=== PATIENT | female | born 1995 | race Caucasian/White ===

== ENCOUNTER 2016-11-02 05:52 | Inpatient (IN) | payer MEDICAID ==
[2016-11-02] VITALS (11 sets, daily range): BP systolic 104–124; BP diastolic 48–75; Ht 157.5 cm; Wt 70.8 kg
[~2016-11-02] VITALS: Ht 157.5 cm; Wt 70.8 kg
[~2016-11-02 05:52] MED LIST: IBUPROFEN200 MG PO; PERCOCET 5/3251 TA1 PO; PRENATAL COMPLE1 TAB PO; ZOVIRAX400 MG PO; ZOVIRAX800 MG PO
[2016-11-02 06:46] LABS: HEMATOCRIT 34.7 % (36.0-48.0); HEMOGLOBIN 11.4 g/dL (12-16); MCH 29.3 pg (26.0-34.0); MCHC 32.9 g/dL (31.0-37.0); MCV 89.2 fL (80.0-100.0); MEAN PLATELET VOLUME 9.7 fL (7.4-10.4); RBC 3.89 10x6/uL (4.00-5.40); RDW 13.1 % (11.5-14.5); WBC 9.3 10x3/uL (4.8-10.8)
[2016-11-02 07:15] LABS: APPEARANCE HAZY (CLEAR); BILIRUBIN NEGATIVE (NEGATIVE); COLOR YELLOW (YELLOW); GLUCOSE NEGATIVE (NEGATIVE); KETONE NEGATIVE (NEGATIVE); LEUKOCYTE ESTERASE NEGATIVE (NEGATIVE); NITRITE NEGATIVE (NEGATIVE); PROTEIN NEGATIVE (NEGATIVE); SPECIFIC GRAVITY 1.015 (1.005-1.020); UROBILINOGEN NORMAL (NORMAL)
--- NOTE | 2016-11-02 08:57 | NUR ---
PALPATED FUNDUS FIRM AND MIDLINE
--- NOTE | 2016-11-02 09:15 | NUR ---
PT RECEIVED FROM RECOVERY ROOM S/P . SHE IS AWAKE AND ALERT. HER PAIN IS ABOUT A 7. LUNGS- CLEAR. HEART- RRR. ABD SOFT WITH BULKY DRESSING NOTED. ERIKA PAD WITH SMALL AMOUNT OF LOCIA RUBRA NOTED. ICE PACK PLACED ON INCISION. CORCORAN CATH INTACT WITH PHILIPP COLORED URINE. CORCORAN SECURED TO R THIGH. SCD'S INITIATED. IV INTACT R FOREARM AND PATENT. LR WITH PIT INFUSING AT 125 CC/HR. DEMERAOL MEDICAL INTERN INITIATED. BED IS LOW. CALL LIGHT IS IN REACH AND SIDE RAILS UP X 2. PT INSTRUCTED ON TURNING, COUGHING AND DEEP BREATHING, INC JEANA, MEDICAL INTERN, CORCORAN, ICE PACK AND SCD'S.
--- NOTE | 2016-11-02 10:35 | NUR ---
PT REQUESTED TO HAVE A SPRITE. ROLLED A LITTLE TO R SIDE ALSO. PT GIVEN SPRITE. AT BEDSIDE.
--- NOTE | 2016-11-02 11:42 | NUR ---
BABY IS IN ROOM. OFFERS NO COMPLAINTS. IS AT BEDSIDE.
--- NOTE | 2016-11-02 12:14 | NUR ---
PT STATES HER PAIN IS ABOUT A 6 BUT IS BETTER. CHANGED HER PADS OUT. MODERATE LOCIA RUBRA. CLEANED WITH SOAP AND WARM WATER. CORCORAN INTACT. 325 CC PHILIPP COLORED URINE NOTED IN CHAMBER SINCE SHE WAS BROUGHT TO US. STATES PAIN IS A 6/10.
--- NOTE | 2016-11-02 14:44 | NUR ---
ERIKA CARE, CORCORAN CARE COMPLETED. CHUCKS CHANGED AND PAD. MODERATE VAGINAL DISCHARGED NOTED. FUNDUS FIRM AND EVEN WITH UMBLI. FRESH ICE PACK GIVEN. PT DENIES FURTHER NEEDS..SCD ON IRVING LEGS AND WORKING.
--- NOTE | 2016-11-02 17:32 | NUR ---
PT IS HOLDING BABY. . BABY IS LATCHING ON.
--- NOTE | 2016-11-02 18:17 | NUR ---
PT IS RESTING IN BED. PT OFFERS NO COMPLAINTS. IV R FOREARM WITH NS WITH PIT INFUSING. DEMEROL FOUNDRY MELT SUPERVISOR 10 MG Q 10 MIN. CORCORAN INTACT. HAS HAD 750 CC OUTPUT SINCE I RECEIVED HER. LOCIA RUBRA HAS BEEN MODERATE. SCD'S INTACT. BED IS LOW, SIDERAILS UP X 2 AND CALL LIGHT IN REACH.
--- NOTE | 2016-11-02 19:05 | NUR ---
PT RECEIVED LYING IN BED AWAKE AND ALERT WITH FOB AND AT BEDSIDE. VSS. PT RATES PAIN /. IV NOTED TO RIGHT FOREARM INFSUING NS WITH 20 OF PIT @ 125 CC/HR WITH DERMEROL COPER HAND. HEART RRR. LUNG SOUNDS CLEAR BILATERALLY. BOWEL SOUNDS ACTIVE X4 QUADRENTS. ABDOMEN SOFT WITH TENDERNESS. FUNDUS FIRM AND MIDLINE U/2. LOW TRANSVERSE INCISION NOTED TO ADBOMEN WITH BULKY DRESSING. CDI. MODERATE LOCHIA RUBRA NOTED TO ERIKA PAD AT THIS TIME. SCANT LOCHIA RUBRA NOTED TO BLUE PAD. CHANGED ERIKA PAD AND BLUE PAD AT THIS TIME. SCDS NOTED TO BLE. PT DENIES NEEDS AT THIS TIME. BED LOW. PHONE AND CALL LIGHT IN REACH. SRX2.
--- NOTE | 2016-11-02 20:12 | NUR ---
PT AT THIS TIME. REQUESTS SMALL CUP OF ICE. DENIES OTHER NEEDS. BED LOW. PHONE AND CALL LIGHT IN REACH. SRX2.
--- NOTE | 2016-11-02 21:30 | NUR ---
PT RESTING QUIETLY AT THIS TIME. RATES PAIN 8/10. PRESSED EXECUTIVE BUSINESS COACH BUTTON AT THIS TIME. LIGHT LOCHIA RACHAEL NOTED TO ERIKA PAD AT THIS TIME. CHANGED ERIKA PAD. PT REQUESTS JELLO. DENIES OTHER NEEDS. BED LOW. PHONE AND CALL LIGHT IN REACH. SRX2.
--- NOTE | 2016-11-02 22:27 | NUR ---
PT RESTING QUIETLY AT THIS TIME WITH EYES CLOSED. RESPIRATIONS EVEN, NON-LABORED. NO ACUTE DISTRESS NOTED AT THIS TIME. BED LOW. PHONE AND CALL LIGHT IN REACH. SRX2.
[2016-11-03 00:20] VITALS: BP 103/64
--- NOTE | 2016-11-03 00:20 | NUR ---
PT RESTING QUIETLY AT THIS TIME WITH EYES CLOSED. AROUSED EASILY. BP-103/64 P-83 O2-97% ROOM AIR TEMP 98.3. LIGHT LOCHIA RUBRA NOTED TO ERIKA PAD AND BLUE PAD AT THIS TIME. CHANGED BLUE PAD AND ERIKA PAD. EMPTIED 700 CC FROM CORCORAN AT THIS TIME. PT REQUESTS APPLE SAUCE AND SMALL CUP OF ICE WATER AT THIS TIME. DENIES OTHER NEEDS. BED LOW. PHONE AND CALL LIGHT IN REACH. SRX2.
--- NOTE | 2016-11-03 01:45 | NUR ---
PT SITTING UP IN BED WATCHING TV AT THIS TIME. DENIES NEEDS. BED LOW. PHONE AND CALL LIGHT IN REACH. SRX2.
--- NOTE | 2016-11-03 02:18 | NUR ---
REPLACED PT DEMEROL PRINTING TABLE WORKER AT THIS TIME. PT RATES PAIN 9/10. REQUESTING PILLOW. DENIES OTHER NEEDS.
--- NOTE | 2016-11-03 02:31 | NUR ---
ADMINISTERED TORADOL IVP PER ORDERS AT THIS TIME FOR PAIN PT RATES 05/08. MODERATE LOCHIA RUBRA NOTED TO ERIKA PAD. CHANGED ERIKA PAD AT THIS TIME. PT REQUESTS PILLOW TO PROP LEGS UP AT THIS TIME. DENIES OTHER NEEDS. BED LOW. PHONE AND CALL LIGHT IN REACH. SRX2.
--- NOTE | 2016-11-03 02:53 | NUR ---
MEHNAZ PROVIDED TO PT. SCDS ON AND FUNCTIONAL. PT. STATES SHE FEELS "MUCH MORE COMFORTABLE" SINCE TORADOL INJECTION. INFORMED PT. OF POC OF DISCONTINUING IV AND CORCORAN WITHIN NEXT 15 MINUTES. PT. STATES UNDERSTANDING.
--- NOTE | 2016-11-03 03:11 | NUR ---
CORCORAN CATH. DISCONTINUED WITH 600CC IN DRAINAGE BAG. ICE CAP TO ABD DRESSING NOTED. SCDS ON AND FUNCTIONAL. PT. WILL ACTIVATE TECHNICAL MANAGER CHEMICAL PLANT ONE ADDITIONAL TIME AND IV WILL BE CONVERTED TO SALINE LOCK. ANGELINE NEWBERRY TO MOD.
[2016-11-03 03:35] VITALS: BP 114/68
--- NOTE | 2016-11-03 03:35 | NUR ---
IV AND PARER DISCONTINUED. 25CC REMAINING IN PARER. PT. WRITING ON NURSERY PAPERWORK. VITAL SIGNS OBTAINED. CHEERFUL. IV SALINE LOCKED.
--- NOTE | 2016-11-03 05:38 | NUR ---
PT TERMINAL GAUGER LIGHT. STATES SHE IS READY TO GET UP TO USE RESTROOM. MODERATE LOCHIA RUBRA NOTED TO ERIKA PAD AT THIS TIME AND SCANT LOCHIA RUBRA NOTED TO BLUE PAD. ASSISTED PT TO RESTROOM AT THIS TIME. PT VOIDED APPROX 600 CC INTO HAT. CHANGED BLUE PAD AT THIS TIME AND ASSISTED PT INTO MESH PANTIES WITH CLEAN ERIKA PAD. PT REQUESTS ICE WATER AND MORE ICE FOR ICE PACK AT THIS TIME. DENIES OTHER NEEDS. BED LOW. PHONE AND CALL LIGHT IN REACH. SRX2.
--- NOTE | 2016-11-03 06:01 | NUR ---
11/02/161909 - PT VERBALIZED UNDERSTANDING OF HOW TO USE IS AT THIS TIME. PT DEMONSTRATED USE TO ME. PT WAS ABLE TO PULL 1500 AT THIS TIME.
[2016-11-03 07:02] LABS: BASOPHILS 0.1 % (0.0-2.0); EOSINOPHILS 0.4 % (0-7); HEMATOCRIT 30.3 % (36.0-48.0); IMMATURE GRANULOCYTES 0.5 % (0-5); LYMPHOCYTES 12.7 % (15-50); MCH 29.5 pg (26.0-34.0); MCV 89.4 fL (80.0-100.0); MEAN PLATELET VOLUME 9.6 fL (7.4-10.4); MONOCYTES 8.9 % (2-11); NEUTROPHILS 77.4 % (40-80); PLATELET COUNT 184 10x3/uL (130-400); RBC 3.39 10x6/uL (4.00-5.40); RDW 13.1 % (11.5-14.5); WBC 13.2 10x3/uL (4.8-10.8)
[2016-11-03 07:15] VITALS: BP 131/59
--- NOTE | 2016-11-03 07:15 | NUR ---
PT IS RECEIVED LYING IN BED. STATES THAT HER PAIN IS AN 8. BED IS LOW, SIDE RAILS UP AND CALL LIGHT IN REACH. GEN- AWAKE AND ALERT. LUNGS- CLEAR. HEART- RRR. ABD- SOFT WITH TENDERNESS. INCISION COVERED WITH BULKY DRESSING. CLEAN , DRY AND INTACT. LE- SCD'S INTACT. MINIMAL EDEMA NOTED. MOD- LOCIA RUBRA. SALINE LOCK NOTED R FOREARM- PATENT.
[2016-11-03 07:25] LABS: RAPID PLASMA REAGIN Non Reactive (Non Reactive)
--- NOTE | 2016-11-03 07:42 | NUR ---
PT REQUESTED PAIN MED. PAIN IS AN 8/10- ABDOMEN. PAIN IS A CRAMPING. PAIN MED GIVEN.
--- NOTE | 2016-11-03 08:33 | NUR ---
PT IS IN X-RAY. UNABLE TO GIVE DIABETA. I WILL GIVE IT TO HER WHEN SHE GETS BACK.
--- NOTE | 2016-11-03 09:30 | NUR ---
PT UP TO VOID FOR 2ND TIME. SHE VOIDED 500 CC BLOODY URINE. MODERATE LOCIA RUBRA. PANTIES AND PAD CHANGED. PT BACK TO BED.
--- NOTE | 2016-11-03 10:01 | NUR ---
Adela Thompson 11/03/16 LE@ 8:43 S: Patient states things are good, tired. O: Patient sitting lying in bed, lights off, easily waken, in nursery. States is going fine. This is her second baby. does take time and patience in the beginning, especially the first two weeks, when mother and infant are both learn. Feed baby on demand, explain feeding cues. Infant should eat as often as needed when displaying feeding cues and if doesn't wake to feed in 2 , wake . Provided and explain handouts on waking a sleeping baby, positions for , skin to skin, starting a feeding, engorgement, and mom to mom newsletter, what to expect the first week. Explain supply and demand, what takes out your body will make more of. The first couple of days your body will produce colostrum, this will increase by volume daily to meet infant needs. To promote infant to nurse place on chest for skin to skin. Asked if she receives WIC, states yes, made appointment for 12/10/16 at 9:00 am, asked if any questions or needs, declined at this time. Will follow up. A: Patient looks tired, appears confident with . P: Continue to support exclusively Agusto Sheridan, CLC
--- NOTE | 2016-11-03 10:39 | NUR ---
[facility] CALLED AND STATED THAT PT HAD A POSITIVE BLOOD SCREEN. ASKED IF THEY WOULD LET US KNW THE AMOUNT OF RHOGAM TO GIVE HER AND SHE STATED THEY HAVE TO SEND IT TO [facility] AND COULD TAKE 2 DAYS TO RECEIVE RESULTS.
--- NOTE | 2016-11-03 12:36 | OP ---
PATIENT NAME: KAYE MCGEE MEDICAL RECORD: [id number] :93 LOCATION:[facility] D.1223 ADMISSION DATE:11/02/16 SURGEON: KAMRYN DE PAZ MD DATE OF OPERATION: 11/02/2016 PREOPERATIVE DIAGNOSES: 1. Intrauterine at 39 weeks, 0 days. 2. Previous caesarean section times 1. POSTOPERATIVE DIAGNOSES: 1. Intrauterine at 39 weeks, 0 days. 2. Previous caesarean section times 1. 3. Delivered. SURGEON: Kamryn De Paz MD. ANESTHESIA: Chantelle Harrington CRNA with spinal anesthesia. PROCEDURE: Repeat low transverse . FINDINGS: Delivery of viable female infant from vertex presentation via repeat low transverse under spinal anesthesia at 7:59 a.m. with weight of 7 pounds 9 ounces and scores of 9 and 9 at 1 and 5 minutes respectively. A nuchal times 3 was noted and reduced. The cord was clamped and cut. The was bulb suctioned and handed to awaiting pediatric nursing personnel. The placenta was delivered manually intact, 3-vessel cord at 8:00 a.m. Twenty units of Pitocin and 1 liter of normal saline was begun IV. The fundus was noted to be firm. Normal-appearing uterus, ovaries and tubes bilaterally. The patient went to the recovery room in stable condition, the to the nursery. DESCRIPTION OF PROCEDURE: After informed consent was given, the patient was taken to the operating room where spinal anesthesia was placed and found to be adequate. She was placed in a dorsal supine position with a leftward tilt. A Alvarenga catheter was placed with clear urine return noted. She was prepped and draped sterilely. When anesthesia was noted to be adequate, a Pfannenstiel skin incision was made through her previous scar and carried down to the underlying layer of fascia. The fascia was incised in the midline and the fascial incision extended bilaterally with the Cotton scissors. The superior portion of the fascial incision was grasped with 2 Judy clamps and the rectus muscles dissected off sharply and bluntly. Attention was then turned to the inferior portion of the fascial incision, which was again grasped with 2 Judy clamps and the rectus muscles dissected off sharply and bluntly. Rectus muscles were in the midline, the peritoneum identified and grasped with 2 hemostats. It was then entered sharply with the Metzenbaum scissors. This incision was extended superiorly and inferiorly with good visualization of the bladder. The bladder blade was inserted and the vesicouterine peritoneum was grasped with smooth pickups and entered sharply with Metzenbaum scissors. This incision was extended bilaterally and a bladder flap created digitally. The bladder blade was reinserted. The hysterotomy was created with a knife. This was extended bilaterally bluntly and the 's head delivered atraumatically. A nuchal cord times 3 was noted and reduced at time of delivery. The cord was clamped and cut. The was bulb suctioned and handed to awaiting pediatric nursing personnel. The placenta was then delivered, manually expressed and passed off the field as specimen. Cord blood was obtained. The uterus was OPERATIVE REPORT [id number] KAYE MCGEE exteriorized, cleared of all clots and debris. The interior of the uterus was wiped with a moist lap sponge. The hysterotomy was closed with #1 chromic in a running locked fashion. Excellent hemostasis was noted and the uterus was returned to the abdomen. The abdomen was irrigated profusely and noted to be hemostatic. Sheri dust was placed over the hysterotomy to aid additionally in hemostasis. The rectus muscles were reapproximated in the midline with 3 interrupted chromic sutures. The fascia was closed with 1-0 Vicryl in a running fashion, locking the first suture. The subcutaneous tissue was irrigated, any bleeders cauterized with the Bovie and when noted to be sufficiently dry was closed with 3-0 Vicryl in a running fashion and the skin was closed with 3-0 Monocryl in a subcuticular fashion. Dermabond and pressure dressing were applied. Clear urine was noted at completion of the procedure. The patient tolerated the procedure well. Sponge, lap, needle and instrument counts were reported correct times 2 and the patient went to recovery room in stable condition, the to the nursery. ESTIMATED BLOOD LOSS: 800 cc. URINE OUTPUT: 215 cc. SPECIMENS: Placenta and cord blood. COMPLICATIONS: None. TRANSINT:[id number] Voice Confirmation ID: [id number] DOCUMENT ID: [id number] KAMRYN DE PAZ MD at 1236 CC: [id number] DICTATION DATE: 11/02/16 0851 ADULT CROSSING GUARD: 11/02/16 0915 ADM IN [facility] [address] [id number]
--- NOTE | 2016-11-03 13:30 | NUR ---
PT IS SLEEPING. AT BEDSIDE. BED IS LOW. CALL LIGHT IN REACH AND SIDE RAILS UP X 2.
--- NOTE | 2016-11-03 16:26 | NUR ---
PT IS UP TO SHOWER. LINENS CHANGED. PT TOLERATED WELL. DRESSING REMOVED. INCISION PATTED DRY AND PAD APPLIED ON TOP OF INCISION. LOCIA RUBRA IS SLOWING DOWN. BED IS LOW, SIDE RAILS UPX 2 AND CALL LIGHT INREACH.
--- NOTE | 2016-11-03 17:43 | NUR ---
PT IS OUT OF SHOWER. PAD PLACED OVER INCISION. INCISION CLEAN AND DRY. SALINE LOCK R FOREARM INTACT AND PATENT. PT HAS BEEN VOIDING WITHOUT DIFFICULTY. BED IS LOW, SIDE RAILS UP X 2 AND CALL LIGHT IN REACH.
--- NOTE | 2016-11-03 19:35 | NUR ---
PM ROUNDS MADE, PT VISITING WITH FAMILY AND FRIENDS, GETTING READY TO EAT, INFORMED PT THAT I WILL COME BACK SHORTLY TO DO ASSESSMENT, PT VERBALIZES UNDERSTANDING, REQUESTS PAIN MED WHEN I COME BACK, REFUSES IT AT THIS TIME BECAUSE SHE WANTS TO EAT FIRST
--- NOTE | 2016-11-03 20:00 | NUR ---
PT STILL EATING, REQUESTS TO GO AHEAD AND TAKE PAIN MED AT THIS TIME, ADM PERCOCET PO PER MD ORDERS, SEE EMAR, PT REQUESTED AND SERVED [facility], DENIES FURTHER NEEDS AT THIS TIME, FAMILY IN ROOM
--- NOTE | 2016-11-03 21:40 | NUR ---
PT UP AMBULATING HALLWAY AT THIS TIME. REQUESTS TOILET PAPER FOR BATHROOM. DENIES OTHER NEEDS.
[2016-11-03 21:50] VITALS: BP 118/62
--- NOTE | 2016-11-03 21:50 | NUR ---
ASSESSMENT PER FLOW SHEET, VS OBTAINED, SALINE LOCK IN RIGHT FA INTACT WITH NO REDNESS OR EDEMA, BIKINI INC WITH DB INTACT WITH NO REDNESS OR EDEMA, PT REQUESTED AND PROVIDED ICE PACK, PT REPORTS LIGHT BLEEDING WITH NO CLOTS, PT REPORTS FLATUS, NO BM AND VOIDING BY SELF WITH NO DIFFICULTY, PT DENIES FURTHER NEEDS, FOB HANDS BABY TO PT FOR FEEDING
--- NOTE | 2016-11-03 22:35 | NUR ---
PT HOLDING BABY, RATES INC PAIN AND CRAMPING AFTER TAKING THE MOTRIN 01/05, PT DENIES FURTHER NEEDS, BEDDING PROVIDED TO FOB
[2016-11-03 23:50] VITALS: BP 107/65
--- NOTE | 2016-11-03 23:50 | NUR ---
PT SIGN PAINTER APPRENTICE LIGHT, PT READY TO SEND BABY TO [facility] FOR A SHORT TIME, VS OBTAINED, PT DENIES FURTHER NEEDS, FOB AT BEDSIDE
--- NOTE | 2016-11-04 00:04 | NUR ---
PT UP USING RESTROOM AT THIS TIME. DENIES NEEDS.
--- NOTE | 2016-11-04 02:20 | NUR ---
BABY TO ROOM VIA OPEN CRIB CART PER THIS RN, BANDS CHECKED, PT REQUESTS PAIN MED WHEN FINISHED FEEDING BABY, FOB AT BEDSIDE
[2016-11-04 03:14] VITALS: BP 105/61
--- NOTE | 2016-11-04 03:14 | NUR ---
PT SEWER LIGHT. REQUESTS BE TAKEN TO NURSERY AT THIS TIME AND MEDICATION FOR PAIN PT RATES 5/10. ADMINISTERED PERCOCET PO PER ORDERS AT THIS TIME. VSS. PT DENIES NEEDS AT THIS TIME. BED LOW. PHONE AND CALL LIGHT IN REACH. SRX2.
--- NOTE | 2016-11-04 05:03 | NUR ---
INFANT TO ROOM FOR FEEDING AT THIS TIME. PT REQUESTS CUP OF ICE. DENIES OTHER NEEDS. BED LOW. PHONE AND CALL LIGHT IN REACH. SRX2.
--- NOTE | 2016-11-04 06:43 | NUR ---
PT RESTING QUIETLY AT THIS TIME WATCHING TV. FOB AND AT BEDSIDE. PT DENIES NEEDS AT THIS TIME. BED LOW. PHONE AND CALL LIGHT IN REACH. SRX2.
[2016-11-04] MEDS ORDERED: IBUPROFEN600 MG PO (07:23)
[2016-11-04] MEDS ORDERED: PERCOCET 5-3251 TAB PO (07:24)
[2016-11-04 07:30] VITALS: BP 113/67
--- NOTE | 2016-11-04 09:21 | NUR ---
PT IS SLEEPING. BED IS LOW, SIDE RAILS UP X 2 AND CALL LIGHT IN REACH.
--- NOTE | 2016-11-04 10:02 | NUR ---
PT REQUESTED PAIN MED. STATES THAT HER PAIN IS A 7/10. GAVE HER IBUPROFEN AND OXYCODONE 5/325 MG PO.
--- NOTE | 2016-11-04 10:45 | NUR ---
SALINE LOCK REMOVED R FOREARM. TIP INTACT. SHE IS BABY.
== END 2016-11-04 15:30 | disposition home or self-care (01) | DRG 765 ==
LOC: D.LD 05:52 → D.WS 11:49
PROVIDERS: ADMIT Specialist
PROC: 3E0234Z Introduction of Serum, Toxoid and Vaccine into Muscle, Percutaneous Approach (ICD-10-PCS; 2016-11-02)
PROC: 10D00Z1 Extraction of Products of Conception, Low, Open Approach (ICD-10-PCS; principal; 2016-11-02 07:30)
DX: O34.219 Maternal care for unspecified type scar from previous cesarean delivery (principal); O98.82 Other maternal infectious and parasitic diseases complicating childbirth; Z3A.39 39 weeks gestation of pregnancy; Z37.0 Single live birth; O26.893 Other specified pregnancy related conditions, third trimester; Z67.91 Unspecified blood type, Rh negative; O99.824 Streptococcus B carrier state complicating childbirth

== ENCOUNTER 2017-09-18 12:18 | Outpatient (CLI) | payer MEDICAID ==
[2016-11-02 06:06] VITALS: BMI 28.6
[~2017-09-18 12:18] MED LIST changes: +IBUPROFEN600 MG PO; +PERCOCET 5-3251 TAB PO
[2017-09-18 13:14] LABS: APPEARANCE CLOUDY (CLEAR); COLOR YELLOW (YELLOW)
[2017-09-18 13:15] LABS: BILIRUBIN NEGATIVE (NEGATIVE); GLUCOSE NEGATIVE (NEGATIVE); KETONE SMALL mg/dL (NEGATIVE); NITRITE NEGATIVE (NEGATIVE); PROTEIN NEGATIVE (NEGATIVE); SPECIFIC GRAVITY 1.015 (1.005-1.020); UROBILINOGEN NORMAL (NORMAL)
== END 2017-09-18 19:56 | disposition home or self-care (01) ==
LOC: D.LDO 12:18
PROVIDERS: Obstetrics & Gynecology
DX: Z34.83 Encounter for supervision of other normal pregnancy, third trimester (principal); Z3A.33 33 weeks gestation of pregnancy; M54.9 Dorsalgia, unspecified

== ENCOUNTER → 2017-10-18 11:20 | Outpatient (CLI) | payer MEDICAID ==
[2016-11-02 06:06] VITALS: BMI 28.6
[2017-10-18 11:39] LABS: APPEARANCE CLEAR (CLEAR); BILIRUBIN NEGATIVE (NEGATIVE); COLOR YELLOW (YELLOW); GLUCOSE NEGATIVE (NEGATIVE); KETONE NEGATIVE (NEGATIVE); NITRITE NEGATIVE (NEGATIVE); PROTEIN NEGATIVE (NEGATIVE); UROBILINOGEN NORMAL (NORMAL)
[2017-10-18 11:40] LABS: BACTERIA FEW /hpf (NONE SEEN); MUCUS <1+ /lpf (NONE SEEN); RED CELLS - URINE RARE /hpf (0-5); WHITE CELLS - URINE 0-5 /hpf (0-5)
== END | disposition home or self-care (01) ==
LOC: D.LDO 11:20
PROVIDERS: Obstetrics & Gynecology
DX: O26.893 Other specified pregnancy related conditions, third trimester (principal); Z3A.37 37 weeks gestation of pregnancy; R10.9 Unspecified abdominal pain

== ENCOUNTER 2017-11-01 05:32 | Inpatient (IN) | payer MEDICAID ==
[2017-11-01] VITALS (19 sets, daily range): BP systolic 105–132; BP diastolic 58–89; Ht 157.5 cm; Wt 70.8 kg
[~2017-11-01] VITALS: Ht 157.5 cm; Wt 70.8 kg
--- NOTE | ~2017-11-01 | DS ---
PATIENT:KAYE MCGEE :89 MEDICAL RECORD: [id number] DISCHARGE SUMMARY ADMISSION DATE: 11/01/17 DISCHARGE DATE: 11/03/17 DATE OF ADMISSION: 11/01/2017 DATE OF DISCHARGE: 11/03/2017 ADMISSION DIAGNOSES: 1. at term. 2. Unwanted fertility. DISCHARGE DIAGNOSES: 1. Mother delivered term. 2. Unwanted fertility. 3. Possible percreta. PROCEDURES PERFORMED: 1. Repeat low transverse section. 2. tubal ligation. ATTENDING PHYSICIAN: Miriam Luna MD HISTORY OF PRESENT ILLNESS: See the H&P. SUMMARY OF HOSPITALIZATION: The patient received procedure. During the procedure, placenta was encountered immediately adjacent to the rectus bellies and a presumed diagnosis of percreta was given. The patient was delivered and received 2 units of packed red blood cells. At the time of discharge, she is tolerating regular diet, voiding without difficulty and has had adequate pain control. The patient has asked about antidepressants, has a history of depression. The patient denies suicidal or homicidal intent or ideation at this time and will receive Celexa at discharge. Follow up in 1 week. DISCHARGE MEDICATIONS: Will include Percocet and Motrin as well as the Celexa. TRANSINT:[id number] Voice Confirmation ID: [id number] DOCUMENT ID: [id number] MIRIAM LUNA MD at 1250 CC: [id number] DICTATION DATE: 11/03/17 0747 GRADE AND CENTER MARKER: 11/03/17 1112 DIS IN 11/03/[id number] [place] [address]
--- NOTE | ~2017-11-01 | OP ---
PATIENT NAME: KAYE MCGEE MEDICAL RECORD: [id number] :93 LOCATION:[facility] D.1274 ADMISSION DATE:11/01/17 SURGEON: TENZIN LUNA MD DATE OF OPERATION: 11/01/2017 PREOPERATIVE DIAGNOSIS: 1. at term. 2. Prior section times 2. 3. Unwanted fertility. POSTOPERATIVE DIAGNOSES: 1. at term. 2. Prior section times 2. 3. Unwanted fertility. 4. Dense pelvic adhesions. 5. Probable percreta. PROCEDURES: 1. Repeat low transverse section. 2. Bilateral fimbriectomy. SURGEON: Tenzin Luna MD CALL CENTER RECRUITER: Chinedu Mccullough ANESTHESIA: Spinal. ANESTHESIOLOGIST: Werner Hernandez MD MACHINE DEBURRER: FINDINGS: Viable , vertex presentation, Apgars 9 and 9, weight not known at this time. The uterus is adhesed to the lower abdominal wall. Upon entry into the abdomen, placenta was encountered. Tubes and ovaries unremarkable. Lower uterine anatomy was distorted. SPECIMENS REMOVED: Placenta and tubes. SPECIMEN DISPOSITION: Pathology. ESTIMATED BLOOD LOSS: 1000 cc. FLUIDS: 1600 cc lactated Ringer's and 600 of packed red blood cells. URINE OUTPUT: 500 of clear urine (retrograde filled with sterile milk, demonstration of the defect). COMPLICATIONS: Hemorrhage. DRAIN: Alvarenga to gravity. INDICATIONS: The patient is a 22-year-old G3, para 2 with 2 prior sections and unwanted fertility. The patient has a known anterior placenta. The patient is consented for repeat low transverse section and any indicated procedure and bilateral tubal site and sterilization. OPERATIVE REPORT [id number] KAYE MCGEE DESCRIPTION OF PROCEDURE: After informed consent was assured, the patient was taken to the operating room where anesthesia was obtained. The patient was assessed after being prepped and draped. Incision was made over the old scar and carried down to the underlying layer of the fascia. The fascia was opened in midline and extended laterally. The rectus bellies were dissected superiorly and inferiorly. Midline was identified and dense adhesions were encountered. Blunt dissection begins and the rectus bellies are with Cotton scissors. The final dissection going through the peritoneum is performed bluntly and the placenta was immediately entered. The incision is immediately extended superiorly and inferiorly and then . The is delivered along with the placenta intact. Cord was milked, and then cord was doubly clamped and cut. The infant was passed to the attendance. Placenta is sent for pathology. The uterus was exteriorized. Immediate call for assistance and rapid sequence induction is given. The lower segment was cleared of all clot and debris until edges could be identified. The lower segment is distorted. The margins of the uterus are identified and now closed. The uterine defect is closed with running ligature of chromic stitch. This was performed with 2 separate stitches beginning at the margins of the uterine defect. The bladder flap is dissected sharply from the lower segment. Bleeding vessels cauterized. Vicryl stitches used in a running fashion to maintain control bleeding along the edge of the bladder flap. Posterior cul-de-sac is irrigated and all irrigant removed. FloSeal was now placed in the lower segment. The fimbria on both right and left side are isolated with hemostats and creating a defect in the antimesenteric portion. Two clamps were placed through this opening and end of the tube was removed on both right and left side. Both pedicles are secured with bone free tie and a stick tie. Hemostasis is achieved. Uterus was returned to the abdomen and the lower segment again inspected. Rectus bellies are inspected. Bleeding vessels cauterized, and the fascia closed with PDS. Subcutaneous tissues mobilized with Bovie cautery and bleeding vessels cauterized. The defect in the subcutaneous spaces was obliterated with a plain gut stitch. [facility] are now applied. Sterile dressing is placed and the patient went to the recovery area in stable condition. TRANSINT:[id number] Voice Confirmation ID: [id number] DOCUMENT ID: [id number] TENZIN LUNA MD at 0743 CC: [id number] DICTATION DATE: 11/01/17 0852 REPAIRER HANDTOOLS: 11/01/17 1133 ADM IN [facility] [address] [place] [address]
[2017-11-01] MEDS ORDERED: FERROUS SULFAT325 MG PO (05:50)
[2017-11-01] MEDS ORDERED: PRENATAL COMPLE1 TAB PO (05:50)
[2017-11-01 06:19] LABS: HEMATOCRIT 29.4 % (36.0-48.0); HEMOGLOBIN 9.7 g/dL (12-16); MCH 27.9 pg (26.0-34.0); MCV 84.5 fL (80.0-100.0); MEAN PLATELET VOLUME 9.1 fL (7.4-10.4); RBC 3.48 10x6/uL (4.00-5.40); RDW 13.7 % (11.5-14.5); WBC 9.1 10x3/uL (4.8-10.8)
[2017-11-01 06:47] LABS: UDS - AMPHET NEGATIVE QUAL (NEGATIVE); UDS - BARB NEGATIVE QUAL (NEGATIVE); UDS - BENZO NEGATIVE QUAL (NEGATIVE); UDS - COCAINE NEGATIVE QUAL (NEGATIVE); UDS - OPIATE NEGATIVE QUAL (NEGATIVE); UDS - PCP NEGATIVE QUAL (NEGATIVE); UDS - THC NEGATIVE QUAL (NEGATIVE)
[2017-11-01 16:30] LABS: BASOPHILS 0.1 % (0-2); EOSINOPHILS 0 % (0-7); HEMATOCRIT 29.9 % (36.0-48.0); HEMOGLOBIN 9.9 g/dL (12-16); IMMATURE GRANULOCYTES 0.3 % (0-5); LYMPHOCYTES 5.7 % (15-50); MCH 28.6 pg (26.0-34.0); MCHC 33.1 g/dL (31.0-37.0); MCV 86.4 fL (80.0-100.0); MEAN PLATELET VOLUME 9.1 fL (7.4-10.4); MONOCYTES 4.9 % (2-11); RBC 3.46 10x6/uL (4.00-5.40); RDW 13.8 % (11.5-14.5)
[2017-11-01 16:39] LABS: WBC 17.5 10x3/uL (4.8-10.8)
[2017-11-01 16:40] LABS: PLATELET COUNT 156 10x3/uL (130-400)
[2017-11-02 03:52] VITALS: BP 112/64
[2017-11-02 06:14] LABS: RAPID PLASMA REAGIN Non Reactive (Non Reactive)
[2017-11-02 07:11] VITALS: BP 108/59
[2017-11-02 14:57] VITALS: BP 135/84
[2017-11-02 19:11] VITALS: BP 120/74
[2017-11-03 07:23] VITALS: BP 118/71
[2017-11-03] MEDS ORDERED: CELEXA20 MG PO (08:55)
[2017-11-03] MEDS ORDERED: IBUPROFEN800 MG PO (08:56)
[2017-11-03] MEDS ORDERED: PERCOCET 7.5/321 TAB PO (08:57)
== END 2017-11-03 12:30 | disposition home or self-care (01) | DRG 765 ==
LOC: D.LD 05:32 → D.WS 07:30 → D.LD 11-03 12:30
PROVIDERS: Obstetrics & Gynecology
PROC: 10D00Z1 Extraction of Products of Conception, Low, Open Approach (ICD-10-PCS; principal; 2017-11-01 07:30)
PROC: 0UB70ZZ Excision of Bilateral Fallopian Tubes, Open Approach (ICD-10-PCS; 2017-11-01 07:30)
DX: O34.219 Maternal care for unspecified type scar from previous cesarean delivery (principal); O72.0 Third-stage hemorrhage; Z3A.39 39 weeks gestation of pregnancy; Z37.0 Single live birth; Z87.891 Personal history of nicotine dependence; O43.233 Placenta percreta, third trimester

== ENCOUNTER 2019-08-06 13:59 | Emergency (ER) | payer MEDICAID ==
[~2019-08-06] VITALS: Ht 157.5 cm; Wt 50.3 kg
[~2019-08-06 13:59] MED LIST changes: +CELEXA20 MG PO; +FERROUS SULFAT325 MG PO; +IBUPROFEN800 MG PO; +PERCOCET 7.5/321 TAB PO
[2019-08-06 14:24] VITALS: BP 111/64; Ht 157.5 cm; Wt 50.3 kg
== END 2019-08-06 16:00 | disposition home or self-care (01) ==
LOC: D.ER 13:59
DX: S06.0X9A Concussion with loss of consciousness of unspecified duration, initial encounter (principal); V89.9XXA Person injured in unspecified vehicle accident, initial encounter; Y93.9 Activity, unspecified; Y92.9 Unspecified place or not applicable

== ENCOUNTER 2020-01-23 11:51 | Emergency (ER) | payer OTHER ==
[~2020-01-23] VITALS: Ht 157.5 cm; Wt 47.7 kg
[2020-01-23 12:06] VITALS: Ht 157.5 cm; Wt 47.7 kg
[2020-01-23 12:40] LABS: BASOPHILS 0.3 % (0-2); EOSINOPHILS 3.6 % (0-7); HEMATOCRIT 42.5 % (36.0-48.0); HEMOGLOBIN 13.8 g/dL (12-16); IMMATURE GRANULOCYTES 0.3 % (0-5); LYMPHOCYTES 33.4 % (15-50); MCH 29.3 pg (26.0-34.0); MCHC 32.5 g/dL (31.0-37.0); MCV 90.2 fL (80.0-100.0); MEAN PLATELET VOLUME 9.8 fL (7.4-10.4); MONOCYTES 9.1 % (2-11); NEUTROPHILS 53.3 % (40-80); RBC 4.71 10x6/uL (4.00-5.40); RDW 12.6 % (11.5-14.5); WBC 6.6 10x3/uL (4.8-10.8)
[2020-01-23 12:42] LABS: CALC OSMOLALITY 277 mosm/kg (275-300); CALCIUM 8.4 mg/dL (8.5-10.1); CARBON DIOXIDE 27.5 mmol/L (21.0-32.0); CHLORIDE - SERUM 106 mmol/L (98-107); CREATININE - SERUM 0.7 mg/dL (0.6-1.3); GLUCOSE 91 mg/dL (74-106); POTASSIUM - SERUM 3.9 mmol/L (3.5-5.1); SODIUM 139 mmol/L (136-145); UREA NITROGEN 12 mg/dL (7-18); eGFR NON AFRICAN AMERICAN > 90 mL/min (90-120)
[2020-01-23 12:49] LABS: ALKALINE PHOSPHATASE 75 U/L (30-120); ALT (SGPT) 25 U/L (10-68); AMYLASE - SERUM 48 U/L (25-115); BILIRUBIN - TOTAL 0.52 mg/dL (0.2-1.3); LIPASE 82 U/L (73-393); PROTEIN - SERUM 7.3 g/dL (6.4-8.2)
[2020-01-23 12:56] LABS: PLATELET COUNT 225 10x3/uL (130-400)
[2020-01-23 13:27] LABS: BILIRUBIN NEGATIVE (NEGATIVE); GLUCOSE NEGATIVE (NEGATIVE); KETONE NEGATIVE (NEGATIVE); NITRITE NEGATIVE (NEGATIVE); RED CELLS - URINE NONE SEEN /hpf (0-5); SPECIFIC GRAVITY 1.015 (1.005-1.020); UROBILINOGEN NORMAL (NORMAL); WHITE CELLS - URINE 0-5 /hpf (NEGATIVE)
[2020-01-23 13:28] LABS: BACTERIA FEW /hpf (NEGATIVE)
[2020-01-23] MEDS ORDERED: MIRALAX17 GM PO (14:11)
[2020-01-23 14:40] VITALS: BP 103/64
== END 2020-01-23 16:12 | disposition home or self-care (01) ==
LOC: D.ER 11:51
PROVIDERS: Family Medicine
DX: R10.9 Unspecified abdominal pain (principal); R11.2 Nausea with vomiting, unspecified

== ENCOUNTER 2021-01-10 11:47 | Emergency (ER) | payer OTHER ==
[~2021-01-10] VITALS: Ht 157.5 cm; Wt 52.2 kg
[~2021-01-10 11:47] MED LIST changes: +MIRALAX17 GM PO
[2021-01-10 12:14] VITALS: Ht 157.5 cm; Wt 52.2 kg
[2021-01-10 13:48] LABS: BASOPHILS 0.2 % (0-2); HEMATOCRIT 46.5 % (36.0-48.0); HEMOGLOBIN 15.9 g/dL (12-16); IMMATURE GRANULOCYTES 0.3 % (0-5); LYMPHOCYTE ABS# 1.87 10x3/uL (1.18-3.74); LYMPHOCYTES 19.8 % (15-50); MCH 30.2 pg (26.0-34.0); MCHC 34.2 g/dL (31.0-37.0); MCV 88.2 fL (80.0-100.0); MEAN PLATELET VOLUME 9.6 fL (7.4-10.4); MONOCYTES 8.5 % (2-11); NEUTROPHIL ABS# 6.55 10x3/uL (1.56-6.13); NEUTROPHILS 69.2 % (40-80); PLATELET COUNT 262 10x3/uL (130-400); RBC 5.27 10x6/uL (4.00-5.40); RDW 12.4 % (11.5-14.5); WBC 9.5 10x3/uL (4.8-10.8)
[2021-01-10 14:05] LABS: CALC OSMOLALITY 273 mosm/kg (275-300); CALCIUM 9.1 mg/dL (8.5-10.1); CARBON DIOXIDE 27.2 mmol/L (21.0-32.0); CHLORIDE - SERUM 102 mmol/L (98-107); CREATININE - SERUM 0.8 mg/dL (0.6-1.3); GLUCOSE 88 mg/dL (74-106); POTASSIUM - SERUM 4.3 mmol/L (3.5-5.1); SODIUM 137 mmol/L (136-145); UREA NITROGEN 14 mg/dL (7-18); eGFR NON AFRICAN AMERICAN > 90 mL/min (90-120)
[2021-01-10 14:10] LABS: APTT 28.3 SECONDS (22.8-39.4); INR 1.08 (0.85-1.17); PROTIME 12.9 SECONDS (11.6-15.0)
[2021-01-10 14:20] LABS: ALBUMIN 4.2 g/dL (3.4-5.0); ALKALINE PHOSPHATASE 81 U/L (30-120); ALT (SGPT) 20 U/L (10-68); BILIRUBIN - TOTAL 0.57 mg/dL (0.2-1.3); CKMB 0.2 U/L (0.0-3.6); CREATINE KINASE 83 UL (21-215); MAGNESIUM - SERUM 2.1 mg/dL (1.8-2.4); PROTEIN - SERUM 8.3 g/dL (6.4-8.2); TROPONIN-I < 0.017 ng/mL (0.000-0.060)
[2021-01-10 15:44] VITALS: BP 132/89
[2021-01-10] MEDS ORDERED: CYCLOBENZAPRINE10 MG PO (16:05)
[2021-01-10] MEDS ORDERED: IBUPROFEN800 MG PO (16:05)
[2021-01-10] MEDS ORDERED: ACETAMINOPHEN500 M1 PO (16:05)
== END 2021-01-10 16:21 | disposition home or self-care (01) ==
LOC: D.ER 11:47
PROVIDERS: Family Medicine
DX: R07.89 Other chest pain (principal); M54.9 Dorsalgia, unspecified